=== PATIENT | male | born 1980 | race African-American/Black ===

== ENCOUNTER 2016-06-06 23:43 | Emergency (ER) | payer OTHER ==
[~2016-06-06] VITALS: Ht 182.9 cm; Wt 96.2 kg
[2016-06-07 01:42] VITALS: BP 156/75
[2016-06-07] MEDS ORDERED: NAPROXEN 250 MG TABLET PO ONE (02:00)
[2016-06-07] MEDS ORDERED: CYCLOBENZAPRINE 10 MG TABLET. PO ONE (02:00)
[2016-06-07] MEDS ORDERED: NAPR250T2 PO (02:22)
[2016-06-07] MEDS ORDERED: CYCL10TA2 PO (02:22)
--- NOTE | 2016-06-07 06:42 | ED.ADGEN ---
Past Medical History Past Medical History: No Pertinent History Past Surgical History: Other Additional Past Surgical Histo: right knee sx Alcohol Use: None Drug Use: None Adult General Chief Complaint Chief Complaint: MECHANICAL FALL HPI HPI Patient is a 35 year old man, who presents to the emergency department with a complaint of right knee pain. Patient states that he was pivoting on his leg, when he slipped on a puddle of water, his leg twisted underneath him and he did fall down, catching himself on a chair. Patient states that when his knee twisted he heard a "pop", and felt immediate pain along the medial aspect of his knee. Patient denies any previous injuries, denies any other complaints this time. Did not strike his head or neck. Patient was unable to bear weight. Has not taken any medication prior to coming to the ED. Review of Systems Review of Systems Constitutional: Denies fever or chills. [] Eyes: Denies change in visual acuity. [] HENT: Denies nasal congestion or sore throat. [] Respiratory: Denies cough or shortness of breath. [] Cardiovascular: Denies chest pain or edema. [] GI: Denies abdominal pain, nausea, vomiting, bloody stools or diarrhea. [] : Denies dysuria. [] Musculoskeletal: Denies back pain, pain in the medial aspect of the right knee. Integument: Denies rash. [] Neurologic: Denies headache, focal weakness or sensory changes. [] Endocrine: Denies polyuria or polydipsia. [] Lymphatic: Denies swollen glands. [] Psychiatric: Denies depression or anxiety. [] Current Medications Current Medications Current Medications Medications (Trade) Dose Ordered Sig/Edgardo Start Time Stop Time Status Last Admin Dose Admin Cyclobenzaprine HCl (Flexeril) 10 mg 1X ONCE 06/07/16 02:00 06/07/16 02:01 DC 06/07/16 01:45 10 MG Naproxen (Naprosyn) 250 mg 1X ONCE 06/07/16 02:00 06/07/16 02:01 DC 06/07/16 01:46 250 MG Allergies Allergies Allergies Coded Allergies Type Severity Reaction Last Updated Verified No Known Drug Allergies 06/06/16 No Physical Exam Physical Exam Constitutional: Well developed, well nourished, no acute distress, non-toxic appearance. [] HENT: Normocephalic, atraumatic, bilateral external ears normal, oropharynx moist, no oral exudates, nose normal. [] Eyes: PERRLA, EOMI, conjunctiva normal, no discharge. [] Neck: Normal range of motion, no tenderness, supple, no stridor. [] Cardiovascular:Heart rate regular rhythm, no murmur, S1, S2, rubs or gallops. [] Lungs & Thorax: Bilateral breath sounds clear to auscultation, no wheezing, rhonchi, rales. [] Abdomen: Bowel sounds normal, soft, no tenderness, no masses, no pulsatile masses. [] Skin: Warm, dry, no erythema, no rash. [] Back: No tenderness, no CVA tenderness. [] Extremities: Patient with tenderness to palpation along the medial aspect of the right knee, no bony point tenderness, no crepitus, no deformity, no effusion identified. Negative drawer test anterior and posterior. Pulses are intact bilaterally. No other areas of tenderness or abnormalities identified. No abrasions or lacerations. Skin is normal in appearance. Neurologic: Alert and oriented X 3, normal motor function, normal sensory function, no focal deficits noted. [] Psychologic: Affect normal, judgement normal, mood normal. [] Current Patient Data Vital Signs Vital Signs Date Time Temp Pulse Resp B/P Pulse Ox O2 Delivery O2 Flow Rate FiO2 06/07/16 01:42 98 16 156/75 98 Room Air 06/06/16 23:50 98.1 98.1 EKG EKG Not indicated. [] Radiology/Procedures Radiology/Procedures Right knee x-ray: 4 view: No fracture or subluxation, no effusion, no soft tissue or bony abnormalities identified. As interpreted by me. [] Course & Med Decision Making Course & Med Decision Making Pertinent Labs and Imaging studies reviewed. (See chart for details) Patient without bony point tenderness or crepitus, x-ray did not reveal any evidence of acutely concerning findings. Patient unable to weight-bear, pain with flexion and extension. Placed in knee immobilizer for comfort after enemas were trial in the ED. Patient received crutches, crutch walking instructions, demonstrated crutch walking ability without issue in the ED. Patient received naproxen, cycle but the pain, I did discuss with the patient that his symptoms are consistent with a sprain, patient states he developed an area, will be able to follow-up with orthopedist near his home if symptoms persist. To return to the ED for new or worsening symptoms as discussed at bedside, continue use of naproxen and cyclobenzaprine as needed along with ice and activity. Discharged home in stable condition with plan as above. Dragon Disclaimer Dragon Disclaimer This electronic medical record was generated, in whole or in part, using a voice recognition dictation system. Departure Impression: Primary Impression: Knee pain, right Disposition: 01 HOME, SELF-CARE Condition: IMPROVED Scripts Naproxen 250 Mg [id number] Mg PO BID PRN PAIN #10 Prov:JUSTUS SHULTZ DO 06/07/16 Cyclobenzaprine Hcl 10 Mg [id number] Mg PO TID PRN MUSCLE PAIN #12 TAB Prov:JUSTUS SHULTZ DO 06/07/16 JUSTUS SHULTZ DO Jun 07, 2016 06:42
--- NOTE | 2016-06-07 07:15 | RAD ---
Right knee with patella, 4 views, 06/07/2016: Fever History: Fall, pain No acute fracture or dislocation is identified. There are cystic and sclerotic changes in the lateral femoral condyle with irregularity of its articular surface. 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 There is mild spurring laterally at the knee joint. Minimal degenerative change is present the patellofemoral articulation. No joint effusion is evident. IMPRESSION: 1. Moderate degenerative change. 2. No acute bony abnormality is detected.
== END 2016-06-07 02:38 | disposition home or self-care (01) ==
LOC: ER 23:43
DX: M25.561 Pain in right knee (principal); W18.39XA Other fall on same level, initial encounter; Y93.89 Activity, other specified; Y99.8 Other external cause status; Y92.89 Other specified places as the place of occurrence of the external cause
CPT/HCPCS: 29505; 73564; 99284-25